=== PATIENT | female | born 1970 | race Caucasian/White ===

== ENCOUNTER → 2020-09-29 | Emergency (ER) | payer SELFPAY ==
[~2020-09-29] VITALS: Ht 157.5 cm; Wt 88.0 kg
[~2020-09-29] MED LIST: DIAZEPAM INJ 5 MG/ML 2 ML IM NR; LIDOCAINE 4% PATCH TP NR; METHYLPREDNISOLONE SOD SUCC 125 MG/2ML VIAL IM ONE
[2020-09-29 17:09] VITALS: BP 142/76
== END | disposition home or self-care (01) ==
LOC: ER 21:18
DX: M25.512 Pain in left shoulder (principal); M75.02 Adhesive capsulitis of left shoulder; X50.0XXA Overexertion from strenuous movement or load, initial encounter; Y99.0 Civilian activity done for income or pay; I10 Essential (primary) hypertension; D68.2 Hereditary deficiency of other clotting factors
CPT/HCPCS: 99283; J2930; J3360

== ENCOUNTER 2021-06-18 11:44 | Emergency (ER) | payer OTHER ==
[~2021-06-18] VITALS: Ht 157.5 cm; Wt 93.0 kg
[2021-06-18] MEDS ORDERED: PROMETHAZINE HCL 25 MG TAB PO STA (12:56)
[2021-06-18] MEDS ORDERED: Morphine 4mg Syringe 4 MG/ML INJ IM ONE ×2 (13:00→14:45)
[2021-06-18 14:04] LABS: CLARITY,URINE CLOUDY (CLEAR); COLOR,URINE YELLOW (YELLOW)
[2021-06-18 14:05] LABS: KETONES,URINE NEGATIVE (NEGATIVE); LEUKOCYTE ESTERASE ,URINE NEGATIVE (NEGATIVE); NITRITE,URINE NEGATIVE (NEGATIVE); PROTEIN,URINE DIPSTICK NEGATIVE (NEGATIVE); URINE UROBILINOGEN 0.2 mg/dL (0.2 - 1)
[2021-06-18 14:09] LABS: BACTERIA,URINE MANY /HPF; EPITHELIAL CELLS,URINE MANY /LPF
[2021-06-18 14:10] LABS: MUCUS,URINE MODERATE (RARE)
[2021-06-18] MEDS ORDERED: MORPHINE SULFAT15 MG PO (15:50)
== END 2021-06-18 16:00 | disposition home or self-care (01) ==
LOC: ER 12:02
DX: R10.32 Left lower quadrant pain (principal); S30.1XXA Contusion of abdominal wall, initial encounter; W55.12XA Struck by horse, initial encounter; Y92.89 Other specified places as the place of occurrence of the external cause; I10 Essential (primary) hypertension; D68.2 Hereditary deficiency of other clotting factors; Z79.01 Long term (current) use of anticoagulants
CPT/HCPCS: 74176; 81001; 99283; J2270

== ENCOUNTER 2021-08-23 12:39 | Emergency (ER) | payer OTHER ==
[~2021-08-23] VITALS: Ht 157.5 cm; Wt 93.0 kg
[~2021-08-23 12:39] MED LIST changes: -DIAZEPAM INJ 5 MG/ML 2 ML IM NR; -LIDOCAINE 4% PATCH TP NR; -METHYLPREDNISOLONE SOD SUCC 125 MG/2ML VIAL IM ONE; +MORPHINE SULFAT15 MG PO
[2021-08-23] MEDS ORDERED: PROMETHAZINE HC25 M1 PO (12:55)
== END 2021-08-23 13:40 | disposition home or self-care (01) ==
LOC: ER 12:50
DX: G43.909 Migraine, unspecified, not intractable, without status migrainosus (principal); I10 Essential (primary) hypertension; D68.51 Activated protein C resistance
CPT/HCPCS: 99283

== ENCOUNTER 2021-11-26 02:12 | Emergency (ER) | payer OTHER ==
[~2021-11-26] VITALS: Ht 157.5 cm; Wt 95.3 kg
[~2021-11-26 02:12] MED LIST changes: +PROMETHAZINE HC25 M1 PO
[2021-11-26] MEDS ORDERED: Morphine 4mg Syringe 4 MG/ML INJ IM STA (02:19)
[2021-11-26] MEDS ORDERED: PROMETHAZINE HCL (IM) 25 MG/ML VIAL IM STA (02:19)
[2021-11-26] MEDS ORDERED: Morphine 2mg Syringe 2 MG/ML SYR ONE (02:40)
[2021-11-26] MEDS ORDERED: PROMETHAZINE 25MG/SOD CHL 0.9% 50 ML IV ONE (02:41)
[2021-11-26 02:45] VITALS: BP 156/84
== END 2021-11-26 02:46 | disposition home or self-care (01) ==
LOC: ER 02:17
DX: G43.909 Migraine, unspecified, not intractable, without status migrainosus (principal); I10 Essential (primary) hypertension; D68.2 Hereditary deficiency of other clotting factors
CPT/HCPCS: 99282; J2270; J2550

== ENCOUNTER 2022-05-09 12:40 | Emergency (ER) | payer OTHER ==
[~2022-05-09] VITALS: Ht 157.5 cm; Wt 95.3 kg
[2022-05-09] MEDS ORDERED: ONDANSETRON HCL INJ 2MG/ML 2ML 2 MG/ML VIAL IV STA (13:08)
[2022-05-09] MEDS ORDERED: Morphine 4mg INJECTION 4 MG/ML INJ IV ONE ×2 (13:15→14:45)
[2022-05-09] MEDS ORDERED: SODIUM CHLORIDE 0.9% 1000ML 1,000 ML IV ONE (13:15)
[2022-05-09 13:22] LABS: BASOPHILS % 0.7 % (0.0-1.0); EOSINOPHILS # (AUTO) 0.1 (0.0-0.4); EOSINOPHILS % 0.9 % (0.0-6.0); HEMATOCRIT 43.9 % (34.2-44.1); HEMOGLOBIN 14.2 g/dL (12.0-16.0); LYMPHOCYTES # (AUTO) 0.8 (1.0-3.2); LYMPHOCYTES % 14.6 % (18.0-39.1); MEAN CORPUSCULAR HEMOGLOBIN 30.5 pg (28-32); MEAN CORPUSCULAR HGB CONC 32.3 g/dL (31-35); MEAN CORPUSCULAR VOLUME 94.2 fL (81-99); MONOCYTES # (AUTO) 0.1 (0.2-0.8); MONOCYTES % 1.9 % (4.4-11.3); NEUTROPHILS # (AUTO) 4.6 (2.1-6.9); NEUTROPHILS % 81.7 % (38.7-80.0); PLATELET COUNT 234 x10e3/uL (140-360); RED BLOOD COUNT 4.66 x10e6/uL (3.6-5.1); RED CELL DISTRIBUTION WIDTH 12.3 % (11.7-14.4)
[2022-05-09] MEDS ORDERED: TAMSULOSIN HCL 0.4 MG CAP PO ONE (13:30)
[2022-05-09] MEDS ORDERED: PROMETHAZINE HCL (IM) 25 MG/ML VIAL IM ONE (13:30)
[2022-05-09 13:44] LABS: ALBUMIN 3.7 g/dL (3.5-5.0); ANION GAP 14.7 mmol/L (8-16); CALCIUM 9.3 mg/dL (8.4-10.2); CREATININE, SERUM 0.88 mg/dL (0.57-1.11); POTASSIUM 3.7 mmol/L (3.5-5.1)
[2022-05-09 14:04] LABS: CLARITY,URINE CLEAR (CLEAR); COLOR,URINE YELLOW (YELLOW); KETONES,URINE NEGATIVE (NEGATIVE); LEUKOCYTE ESTERASE ,URINE NEGATIVE (NEGATIVE); NITRITE,URINE NEGATIVE (NEGATIVE); PROTEIN,URINE DIPSTICK NEGATIVE (NEGATIVE); URINE UROBILINOGEN 0.2 mg/dL (0.2 - 1)
[2022-05-09 14:05] LABS: BACTERIA,URINE FEW /HPF; EPITHELIAL CELLS,URINE MODERATE /LPF; RBC,URINE 0-5 /HPF (0-5); WBC,URINE (MAN) 0-5 /HPF (0-5)
[2022-05-09 15:35] VITALS: BP 150/100
== END 2022-05-09 15:42 | disposition home or self-care (01) ==
LOC: ER 12:42
DX: R10.31 Right lower quadrant pain (principal); Z76.5 Malingerer [conscious simulation]; I10 Essential (primary) hypertension; D68.2 Hereditary deficiency of other clotting factors
CPT/HCPCS: 36415; 74176; 80053; 81001; 85025; 99283; J2270; J2550; J7030

== ENCOUNTER 2022-06-02 06:58 | Emergency (ER) | payer OTHER ==
[~2022-06-02] VITALS: Ht 157.5 cm; Wt 122.5 kg
[2022-06-02] MEDS ORDERED: METHYLPREDNISOLONE SOD SUCC 125 MG/2ML VIAL IV STA (07:17)
[2022-06-02] MEDS ORDERED: Morphine 4mg INJECTION 4 MG/ML INJ IV STA (07:17)
[2022-06-02] MEDS ORDERED: SODIUM CHLORIDE 0.9% 1000ML 1,000 ML IV STA (07:17)
[2022-06-02] MEDS ORDERED: DIPHENHYDRAMINE HCL INJ 50 MG/ML VIAL IV ONE (07:30)
[2022-06-02] MEDS ORDERED: PROMETHAZINE HCL (IM) 25 MG/ML VIAL IM ONE (08:15)
[2022-06-02 08:18] LABS: BASOPHILS % 0.5 % (0.0-1.0); EOSINOPHILS # (AUTO) 0.2 (0.0-0.4); EOSINOPHILS % 3.4 % (0.0-6.0); HEMATOCRIT 41.5 % (34.2-44.1); HEMOGLOBIN 13.5 g/dL (12.0-16.0); LYMPHOCYTES # (AUTO) 1.5 (1.0-3.2); LYMPHOCYTES % 24.4 % (18.0-39.1); MEAN CORPUSCULAR HEMOGLOBIN 31.3 pg (28-32); MEAN CORPUSCULAR HGB CONC 32.5 g/dL (31-35); MEAN CORPUSCULAR VOLUME 96.3 fL (81-99); MONOCYTES # (AUTO) 0.6 (0.2-0.8); MONOCYTES % 9.6 % (4.4-11.3); NEUTROPHILS # (AUTO) 3.8 (2.1-6.9); NEUTROPHILS % 61.9 % (38.7-80.0); PLATELET COUNT 230 x10e3/uL (140-360); RED BLOOD COUNT 4.31 x10e6/uL (3.6-5.1); RED CELL DISTRIBUTION WIDTH 12.4 % (11.7-14.4)
[2022-06-02 08:31] LABS: INR 0.89; PROTHROMBIN TIME 12.9 seconds (11.9-14.5)
[2022-06-02 08:32] LABS: PARTIAL THROMBOPLASTIN TIME 29.8 seconds (23.8-35.5)
[2022-06-02 08:42] LABS: ALBUMIN 3.4 g/dL (3.5-5.0); ALBUMIN/GLOBULIN RATIO 0.9 (0.8-2.0); ANION GAP 10.5 mmol/L (8-16); CALCIUM 9.1 mg/dL (8.4-10.2); CREATININE, SERUM 0.96 mg/dL (0.57-1.11); POTASSIUM 3.5 mmol/L (3.5-5.1)
[2022-06-02] MEDS ORDERED: HYDROMORPHONE 2MG/ML 2 MG/ML ML IM ONE (08:45)
[2022-06-02 08:49] LABS: CREATINE KINASE MB 0.5 ng/mL (0-5.0)
[2022-06-02 09:32] LABS: COLOR,URINE YELLOW (YELLOW)
[2022-06-02 09:33] LABS: CLARITY,URINE SL CLOUDY (CLEAR); KETONES,URINE NEGATIVE (NEGATIVE); LEUKOCYTE ESTERASE ,URINE NEGATIVE (NEGATIVE); NITRITE,URINE NEGATIVE (NEGATIVE); PROTEIN,URINE DIPSTICK NEGATIVE (NEGATIVE); URINE UROBILINOGEN 0.2 mg/dL (0.2 - 1)
[2022-06-02 09:34] LABS: BACTERIA,URINE FEW /HPF; EPITHELIAL CELLS,URINE MANY /LPF; RBC,URINE 0-5 /HPF (0-5)
== END 2022-06-02 10:26 | disposition home or self-care (01) ==
LOC: ER 07:04
DX: R10.31 Right lower quadrant pain (principal); W55.22XA Struck by cow, initial encounter; Y92.89 Other specified places as the place of occurrence of the external cause; I10 Essential (primary) hypertension; D68.51 Activated protein C resistance
CPT/HCPCS: 36415; 74176; 80053; 81001; 82550; 82553; 83690; 83735; 84484; 85025; 85610; 85730; 99284; J1170; J1200; J2270; J2550; J2930; J7030

== ENCOUNTER 2024-01-16 12:54 | Emergency (ER) | payer OTHER ==
[~2024-01-16 12:54] MED LIST changes: +CEFDINIR300 MG PO
[2024-01-16 13:26] VITALS: PULSE 82; RESP 18; TEMP 98.1; O2SAT 97
== END 2024-01-16 13:20 | disposition left against medical advice (07) ==
LOC: FSED 13:04
DX: R07.9 Chest pain, unspecified (principal); D68.51 Activated protein C resistance; Z86.711 Personal history of pulmonary embolism; I12.9 Hypertensive chronic kidney disease with stage 1 through stage 4 chronic kidney disease, or unspecified chronic kidney disease; N18.9 Chronic kidney disease, unspecified

== ENCOUNTER 2024-01-16 13:34 | Emergency (ER) | payer OTHER ==
[~2024-01-16] VITALS: Ht 157.5 cm; Wt 93.0 kg
[2024-01-16] MEDS ORDERED: SODIUM CHLORIDE FLUSH 10 ML SYR IV PRN (14:15)
[2024-01-16] MEDS: Morphine 4mg INJECTION 4 MG/ML INJ IV ONE (15:24)
[2024-01-16 15:53] LABS: BASOPHILS % 0.3 % (0.0-1.0); EOSINOPHILS % 0.1 % (0.0-6.0); HEMATOCRIT 39.4 % (34.2-44.1); LYMPHOCYTES # (AUTO) 2.2 (1.0-3.2); LYMPHOCYTES % 15.5 % (18.0-39.1); MEAN CORPUSCULAR HEMOGLOBIN 32.2 pg (28-32); MEAN CORPUSCULAR VOLUME 97.5 fL (81-99); MONOCYTES # (AUTO) 1.4 (0.2-0.8); MONOCYTES % 10.3 % (4.4-11.3); NEUTROPHILS # (AUTO) 10.2 (2.1-6.9); NEUTROPHILS % 73.2 % (38.7-80.0); PLATELET COUNT 237 x10e3/uL (140-360); RED BLOOD COUNT 4.04 x10e6/uL (3.6-5.1); RED CELL DISTRIBUTION WIDTH 13.2 % (11.7-14.4); WHITE BLOOD COUNT 13.96 x10e3/uL (4.8-10.8)
[2024-01-16 16:03] LABS: INR 1.08; PROTHROMBIN TIME 14.8 seconds (11.9-14.5)
[2024-01-16 16:13] LABS: ALANINE AMINOTRANSFERASE 21 IU/L (0-55); ALBUMIN 3.9 g/dL (3.5-5.0); ALKALINE PHOSPHATASE 122 IU/L (40-150); ANION GAP 12.9 mmol/L (8-16); BILIRUBIN,TOTAL 0.2 mg/dL (0.2-1.2); BLOOD UREA NITROGEN 13 mg/dL (7-26); BUN/CREATININE RATIO 14 (6-25); CALCIUM 9.7 mg/dL (8.4-10.2); CARBON DIOXIDE 23 mmol/L (22-29); CHLORIDE 107 mmol/L (98-107); EST GLOMERULAR FILTRATION RATE 76 ML/MIN (>=60); GLUCOSE 105 mg/dL (74-118); POTASSIUM 3.9 mmol/L (3.5-5.1); SODIUM 139 mmol/L (136-145); TOTAL PROTEIN 7.7 g/dL (6.5-8.1)
[2024-01-16 16:19] LABS: TROPONIN I < 0.001 ng/mL (0-0.300)
[2024-01-16] MEDS ORDERED: METHYLPREDNISOLONE SOD SUCC 125 MG/2ML VIAL ONE (19:17)
[2024-01-16] MEDS ORDERED: DIPHENHYDRAMINE HCL INJ 50 MG/ML VIAL ONE (19:17)
[2024-01-16] MEDS ORDERED: IOPAMIDOL 370 MG/ML 100 ML INFUS..BTL INJ ONE (19:36)
[2024-01-16] MEDS: METHYLPREDNISOLONE SOD SUCC 125 MG/2ML VIAL IV STA (19:45)
[2024-01-16] MEDS: PROMETHAZINE 12.5MG/ NACL 0.9% 12.5 MG/50 ML BAG IV ONE (19:45)
[2024-01-16] MEDS: DIPHENHYDRAMINE HCL INJ 50 MG/ML VIAL IV STA ×2 (19:46→21:13)
[2024-01-16] MEDS: ASPIRIN 325 MG TAB PO STA ×2 (19:46→19:47)
[2024-01-16] MEDS: SODIUM CHLORIDE 0.9% 1000ML 1,000 ML IV ONE (19:46)
[2024-01-16] MEDS: DIPHENHYDRAMINE HCL INJ 50 MG/ML VIAL IV ONE ×2 (19:47→21:00)
[2024-01-16] MEDS: METHYLPREDNISOLONE SOD SUCC 125 MG/2ML VIAL IV ONE (19:47)
[2024-01-16] MEDS: FAMOTIDINE 20 MG/2 ML VIAL IV STA (21:00)
[2024-01-16] MEDS ORDERED: FAMOTIDINE 20 MG/2 ML VIAL IV ONE (21:03)
[2024-01-16 21:40] VITALS: PULSE 77; RESP 17; TEMP 98
[2024-01-16 22:14] VITALS: BP 166/96; PULSE 77; RESP 17; TEMP 98; O2SAT 99
== END 2024-01-16 22:16 | disposition home or self-care (01) ==
LOC: ER 13:39
DX: R07.9 Chest pain, unspecified (principal); Z86.711 Personal history of pulmonary embolism; Z79.01 Long term (current) use of anticoagulants; Z76.5 Malingerer [conscious simulation]; I10 Essential (primary) hypertension; Z86.73 Personal history of transient ischemic attack (TIA), and cerebral infarction without residual deficits; Z87.442 Personal history of urinary calculi
CPT/HCPCS: 36415; 36569; 71045; 71260; 80053; 83880; 84484; 85025; 85610; 85730; 93005; 99284; J1200; J2270; J2550; J2919; J7030; Q9967

== ENCOUNTER 2024-02-08 09:37 | Observation (INO) | payer OTHER ==
[~2024-02-08] VITALS: Ht 157.5 cm; Wt 95.3 kg
[2024-02-08 09:50] VITALS: TEMP 97.9
[2024-02-08 11:23] LABS: BASOPHILS % 0.4 % (0.0-1.0); EOSINOPHILS # (AUTO) 0.1 (0.0-0.4); HEMATOCRIT 41.7 % (34.2-44.1); LYMPHOCYTES # (AUTO) 1.6 (1.0-3.2); LYMPHOCYTES % 34.3 % (18.0-39.1); MEAN CORPUSCULAR HEMOGLOBIN 32.8 pg (28-32); MEAN CORPUSCULAR HGB CONC 33.6 g/dL (31-35); MEAN CORPUSCULAR VOLUME 97.7 fL (81-99); MONOCYTES # (AUTO) 0.5 (0.2-0.8); NEUTROPHILS # (AUTO) 2.5 (2.1-6.9); NEUTROPHILS % 52.1 % (38.7-80.0); PLATELET COUNT 207 x10e3/uL (140-360); RED BLOOD COUNT 4.27 x10e6/uL (3.6-5.1); RED CELL DISTRIBUTION WIDTH 12.9 % (11.7-14.4); WHITE BLOOD COUNT 4.72 x10e3/uL (4.8-10.8)
[2024-02-08] MEDS: PROMETHAZINE HCL 25 MG TAB PO ONE (11:27)
[2024-02-08] MEDS: HYDROMORPHONE 1MG/1ML INJ IM STA (11:27)
[2024-02-08 11:33] LABS: INR 0.81; PROTHROMBIN TIME 11.8 seconds (11.9-14.5)
[2024-02-08 11:34] LABS: PARTIAL THROMBOPLASTIN TIME 26.7 seconds (23.8-35.5)
[2024-02-08 11:43] LABS: ALANINE AMINOTRANSFERASE 13 IU/L (0-55); ALBUMIN 3.6 g/dL (3.5-5.0); ALKALINE PHOSPHATASE 106 IU/L (40-150); ANION GAP 12.5 mmol/L (8-16); BILIRUBIN,TOTAL 0.3 mg/dL (0.2-1.2); BLOOD UREA NITROGEN 9 mg/dL (7-26); BUN/CREATININE RATIO 11 (6-25); CALCIUM 9.2 mg/dL (8.4-10.2); CARBON DIOXIDE 24 mmol/L (22-29); CHLORIDE 108 mmol/L (98-107); CREATININE, SERUM 0.83 mg/dL (0.57-1.11); EST GLOMERULAR FILTRATION RATE 84 ML/MIN (>=60); GLUCOSE 88 mg/dL (74-118); MAGNESIUM 1.9 MG/DL (1.3-2.1); POTASSIUM 3.5 mmol/L (3.5-5.1); SODIUM 141 mmol/L (136-145); TOTAL PROTEIN 7.1 g/dL (6.5-8.1)
[2024-02-08] MEDS: CLONIDINE HCL 0.1 MG TAB PO ONE (11:44)
[2024-02-08 11:53] LABS: TROPONIN I < 0.001 ng/mL (0-0.300)
[2024-02-08] MEDS ORDERED: HYDROMORPHONE 1MG/1ML INJ IM STA (12:38)
[2024-02-08] MEDS ORDERED: CLONIDINE HCL 0.1 MG TAB PO PRN (13:15)
[2024-02-08] MEDS ORDERED: ACETAMINOPHEN 325 MG TAB PO PRN (13:15)
[2024-02-08] MEDS ORDERED: ONDANSETRON HCL INJ 2MG/ML 2ML 2 MG/ML VIAL IV PRN (13:30)
[2024-02-08] MEDS: WARFARIN SOD 5 MG TAB PO ONE (13:33)
[2024-02-08 14:19] LABS: EOSINOPHILS % (MANUAL) 2 % (0-7); LYMPHOCYTES % (MANUAL) 37 % (19-48); MONOCYTES % (MANUAL) 6 % (3.4-9.0); NEUTROPHILS % (MANUAL) 51 % (40-74); PLATELET ESTIMATE ADEQUATE; PLATELET MORPHOLOGY COMMENT NORMAL; RBC MORPHOLOGY COMMENT NORMAL; REACTIVE LYMPHOCYTES 4
[2024-02-08] MEDS: ENOXAPARIN SODIUM INJ 100 MG/ML SYR SC ONE (14:28)
[2024-02-08 14:30] VITALS: PULSE 71; RESP 17
[2024-02-08] MEDS: HYDROMORPHONE 1MG/1ML INJ IV STA (14:57)
[2024-02-08 15:08] VITALS: BP 149/117; PULSE 70; RESP 20; TEMP 97.5; O2SAT 99
[2024-02-08 15:15] VITALS: BP 149/117; PULSE 70; RESP 20; TEMP 97.5; O2SAT 99
[2024-02-08] MEDS: HYDROCHLOROTHIAZIDE 25 MG TAB PO SCH (17:13)
[2024-02-08] MEDS: WARFARIN SOD 5 MG TAB PO SCH (17:14)
[2024-02-08] MEDS: CARVEDILOL 12.5 MG TAB PO SCH (17:14)
[2024-02-08] MEDS: Morphine 4mg INJECTION 4 MG/ML INJ IV PRN (18:43)
[2024-02-08] MEDS ORDERED: DIPHENHYDRAMINE HCL INJ 50 MG/ML VIAL IV ONE (19:45)
[2024-02-08] MEDS ORDERED: HYDROCORTISONE SOD SUCCINATE 100 MG VIAL IV ONE (19:45)
[2024-02-08 20:00] VITALS: BP 158/115; PULSE 64; RESP 16; TEMP 98.6; O2SAT 99
[2024-02-08] MEDS: HYDROCORTISONE SOD SUCCINATE 100 MG VIAL IV ONE (22:15)
[2024-02-08] MEDS: PROMETHAZINE HCL (IM) 25 MG/ML VIAL IM PRN (22:22)
[2024-02-09] VITALS: BP 155/96; PULSE 72; RESP 18; TEMP 98.6; O2SAT 99
[2024-02-09 01:12] LABS: TROPONIN I < 0.001 ng/mL (0-0.300)
[2024-02-09 01:27] LABS: CREATINE KINASE 70 IU/L (29-168)
[2024-02-09] MEDS: DIPHENHYDRAMINE HCL INJ 50 MG/ML VIAL IV ONE (02:16)
[2024-02-09] MEDS: HYDROCORTISONE SOD SUCCINATE 100 MG VIAL IV ONE (02:17)
[2024-02-09] MEDS ORDERED: IOPAMIDOL 370 MG/ML 100 ML INFUS..BTL INJ ONE (03:20)
[2024-02-09 04:57] VITALS: BP 131/96; PULSE 69; RESP 18; TEMP 98.6; O2SAT 96
[2024-02-09 07:03] LABS: BASOPHILS % 0.2 % (0.0-1.0); HEMATOCRIT 38.5 % (34.2-44.1); HEMOGLOBIN 12.9 g/dL (12.0-16.0); LYMPHOCYTES # (AUTO) 0.6 (1.0-3.2); LYMPHOCYTES % 9.1 % (18.0-39.1); MEAN CORPUSCULAR HEMOGLOBIN 32.7 pg (28-32); MEAN CORPUSCULAR HGB CONC 33.5 g/dL (31-35); MEAN CORPUSCULAR VOLUME 97.7 fL (81-99); MONOCYTES # (AUTO) 0.1 (0.2-0.8); MONOCYTES % 1.5 % (4.4-11.3); NEUTROPHILS # (AUTO) 5.5 (2.1-6.9); NEUTROPHILS % 88.9 % (38.7-80.0); PLATELET COUNT 223 x10e3/uL (140-360); RED BLOOD COUNT 3.94 x10e6/uL (3.6-5.1); RED CELL DISTRIBUTION WIDTH 12.6 % (11.7-14.4); WHITE BLOOD COUNT 6.17 x10e3/uL (4.8-10.8)
[2024-02-09 07:15] LABS: INR 0.9; PROTHROMBIN TIME 12.8 seconds (11.9-14.5)
[2024-02-09 07:22] LABS: ALBUMIN 3.3 g/dL (3.5-5.0); ALBUMIN/GLOBULIN RATIO 0.9 (0.8-2.0); ANION GAP 12.2 mmol/L (8-16); BILIRUBIN,TOTAL 0.2 mg/dL (0.2-1.2); CALCIUM 9.7 mg/dL (8.4-10.2); CHOL/HDL RATIO 2.9 (3.0-3.6); CREATININE, SERUM 0.93 mg/dL (0.57-1.11); POTASSIUM 4.2 mmol/L (3.5-5.1); TOTAL PROTEIN 7.1 g/dL (6.5-8.1)
[2024-02-09 08:07] VITALS: BP 135/92; PULSE 82; RESP 18; TEMP 98.7; O2SAT 95
[2024-02-09 08:16] LABS: CREATINE KINASE 59 IU/L (29-168)
[2024-02-09 09:14] LABS: TROPONIN I < 0.001 ng/mL (0-0.300)
[2024-02-09] MEDS: ENOXAPARIN SODIUM INJ 100 MG/ML SYR SC SCH (09:21)
[2024-02-09 09:25] VITALS: BP 135/92; PULSE 89; RESP 18; TEMP 98.7; O2SAT 95
[2024-02-09] MEDS ORDERED: ELIQUIS5 MG PO (12:10)
[2024-02-09] MEDS ORDERED: COREG12.5 MG PO (12:10)
[2024-02-09] MEDS ORDERED: ESIDRIX25 MG PO (12:10)
[2024-02-09 12:12] VITALS: BP_SYST 149; PULSE 68; RESP 14; TEMP 97.6; O2SAT 97
[2024-02-09] MEDS ORDERED: WARFARIN SOD 5 MG TAB PO SCH (17:00)
[2024-02-09 17:20] VITALS: BP 156/97; PULSE 79
== END 2024-02-09 17:32 | disposition home or self-care (01) ==
LOC: ER 09:45 → ERHOLD 13:32 → MED/SURG2 15:19
PROVIDERS: ADMIT Internal Medicine; ATTEND Internal Medicine
DX: R07.9 Chest pain, unspecified (principal); D68.51 Activated protein C resistance; I10 Essential (primary) hypertension; Z86.73 Personal history of transient ischemic attack (TIA), and cerebral infarction without residual deficits; U07.1 COVID-19; E66.01 Morbid (severe) obesity due to excess calories; Z86.711 Personal history of pulmonary embolism; Z86.718 Personal history of other venous thrombosis and embolism; I07.1 Rheumatic tricuspid insufficiency; G47.33 Obstructive sleep apnea (adult) (pediatric); Z88.6 Allergy status to analgesic agent; Z91.041 Radiographic dye allergy status; Z91.048 Other nonmedicinal substance allergy status; Z88.8 Allergy status to other drugs, medicaments and biological substances; Z79.01 Long term (current) use of anticoagulants; Z79.02 Long term (current) use of antithrombotics/antiplatelets; Z79.899 Other long term (current) drug therapy; Z68.38 Body mass index [BMI] 38.0-38.9, adult; Z82.49 Family history of ischemic heart disease and other diseases of the circulatory system
CPT/HCPCS: 36415; 36569; 71045; 71260; 80053; 80061; 82550; 83735; 84484; 85025; 85610; 85730; 93005; 93306; 93971; 99284; G0378; J1170; J1200; J1650; J1720; J2270; J2550; Q9967; U0002

== ENCOUNTER 2024-02-29 07:47 | Emergency (ER) | payer OTHER ==
[~2024-02-29] VITALS: Ht 157.5 cm; Wt 97.5 kg
[~2024-02-29 07:47] MED LIST changes: +COREG12.5 MG PO; +ELIQUIS5 MG PO; +ESIDRIX25 MG PO
[2024-02-29 07:53] VITALS: TEMP 97
[2024-02-29 08:28] LABS: BILIRUBIN,URINE SMALL (NEGATIVE); CLARITY,URINE TURBID (CLEAR); COLOR,URINE RED (YELLOW); GLUCOSE, URINE NEGATIVE (NEGATIVE); KETONES,URINE NEGATIVE (NEGATIVE); LEUKOCYTE ESTERASE ,URINE NEGATIVE (NEGATIVE); NITRITE,URINE NEGATIVE (NEGATIVE); PH,URINE 5.5 (5 - 7); PROTEIN,URINE DIPSTICK 1+ (NEGATIVE); URINE UROBILINOGEN 1 mg/dL (0.2 - 1)
[2024-02-29 08:50] VITALS: BP 174/124
[2024-02-29] MEDS: CLONIDINE HCL 0.1 MG TAB PO ONE (08:50)
[2024-02-29] MEDS: PROMETHAZINE HCL (IM) 25 MG/ML VIAL IM ONE (08:50)
[2024-02-29 08:51] LABS: BACTERIA,URINE RARE /HPF; EPITHELIAL CELLS,URINE FEW /LPF; RBC,URINE >50 /HPF (0-5); WBC,URINE (MAN) 0-5 /HPF (0-5)
[2024-02-29] MEDS: Morphine 4mg INJECTION 4 MG/ML INJ IM ONE (08:51)
[2024-02-29 09:43] LABS: BASOPHILS % 0.7 % (0.0-1.0); EOSINOPHILS # (AUTO) 0.1 (0.0-0.4); EOSINOPHILS % 2.4 % (0.0-6.0); HEMATOCRIT 41.6 % (34.2-44.1); HEMOGLOBIN 13.7 g/dL (12.0-16.0); LYMPHOCYTES # (AUTO) 1.5 (1.0-3.2); LYMPHOCYTES % 28.4 % (18.0-39.1); MEAN CORPUSCULAR HEMOGLOBIN 32.5 pg (28-32); MEAN CORPUSCULAR HGB CONC 32.9 g/dL (31-35); MEAN CORPUSCULAR VOLUME 98.8 fL (81-99); MONOCYTES # (AUTO) 0.6 (0.2-0.8); MONOCYTES % 11.6 % (4.4-11.3); NEUTROPHILS % 56.7 % (38.7-80.0); PLATELET COUNT 180 x10e3/uL (140-360); RED BLOOD COUNT 4.21 x10e6/uL (3.6-5.1); RED CELL DISTRIBUTION WIDTH 12.8 % (11.7-14.4); WHITE BLOOD COUNT 5.35 x10e3/uL (4.8-10.8)
[2024-02-29] MEDS: SODIUM CHLORIDE 0.9% 1000ML 1,000 ML IV ONE (09:43)
[2024-02-29 10:00] LABS: INR 0.82; PROTHROMBIN TIME 11.7 seconds (11.9-14.5)
[2024-02-29 10:01] LABS: PARTIAL THROMBOPLASTIN TIME 26.6 seconds (23.8-35.5)
[2024-02-29 10:13] LABS: ALANINE AMINOTRANSFERASE 19 IU/L (0-55); ALBUMIN 3.6 g/dL (3.5-5.0); ALKALINE PHOSPHATASE 98 IU/L (40-150); ANION GAP 12.9 mmol/L (8-16); BILIRUBIN,TOTAL 0.5 mg/dL (0.2-1.2); BLOOD UREA NITROGEN 14 mg/dL (7-26); BUN/CREATININE RATIO 18 (6-25); CALCIUM 9.3 mg/dL (8.4-10.2); CARBON DIOXIDE 23 mmol/L (22-29); CHLORIDE 108 mmol/L (98-107); EST GLOMERULAR FILTRATION RATE 88 ML/MIN (>=60); GLUCOSE 87 mg/dL (74-118); LIPASE 17 U/L (8-78); POTASSIUM 3.9 mmol/L (3.5-5.1); SODIUM 140 mmol/L (136-145); TOTAL PROTEIN 7.1 g/dL (6.5-8.1)
[2024-02-29 12:20] VITALS: PULSE 82; RESP 15; O2SAT 100
== END 2024-02-29 12:24 | disposition left against medical advice (07) ==
LOC: ER 07:54
DX: R31.9 Hematuria, unspecified (principal); R10.31 Right lower quadrant pain
CPT/HCPCS: 36415; 74176; 80053; 81001; 83690; 84702; 85025; 85610; 85730; 99284; J2270; J2550

== ENCOUNTER 2024-03-05 16:24 | Emergency (ER) | payer OTHER ==
[~2024-03-05] VITALS: Ht 157.5 cm; Wt 96.7 kg
[2024-03-05] MEDS ORDERED: HYDROCHLOROTHIA25 MG PO (16:49)
[2024-03-05] MEDS ORDERED: COREG12.5 MG PO (16:51)
[2024-03-05] MEDS ORDERED: DIPHENHYDRAMINE HCL INJ 50 MG/ML VIAL IV ONE (17:30)
[2024-03-05] MEDS ORDERED: Morphine 4mg INJECTION 4 MG/ML INJ IV ONE (17:30)
[2024-03-05] MEDS: DIPHENHYDRAMINE HCL INJ 50 MG/ML VIAL IM ONE (17:51)
[2024-03-05] MEDS: Morphine 4mg INJECTION 4 MG/ML INJ IM ONE (17:52)
[2024-03-05 18:52] VITALS: PULSE 85; RESP 16; TEMP 98.7
[2024-03-05] MEDS ORDERED: CYCLOBENZAPRINE5 MG PO (18:52)
[2024-03-05 21:17] VITALS: BP 159/100; PULSE 88; RESP 24; TEMP 98.3; O2SAT 97
== END 2024-03-05 22:03 | disposition home or self-care (01) ==
LOC: FSED 16:39
DX: G43.909 Migraine, unspecified, not intractable, without status migrainosus (principal); I10 Essential (primary) hypertension; D68.2 Hereditary deficiency of other clotting factors; Z86.718 Personal history of other venous thrombosis and embolism; Z86.73 Personal history of transient ischemic attack (TIA), and cerebral infarction without residual deficits; Z87.442 Personal history of urinary calculi
CPT/HCPCS: 70450; 96372; 99283; J1200; J2270

== ENCOUNTER 2024-03-08 19:45 | Emergency (ER) | payer OTHER ==
[~2024-03-08] VITALS: Ht 157.5 cm; Wt 96.6 kg
[~2024-03-08 19:45] MED LIST changes: +CYCLOBENZAPRINE5 MG PO; +HYDROCHLOROTHIA25 MG PO
[2024-03-08 20:18] VITALS: PULSE 89; RESP 18; TEMP 98.1
[2024-03-08] MEDS: ACETAMINOPHEN 325 MG TAB PO ONE (21:00)
[2024-03-08] MEDS: PROMETHAZINE HCL (IM) 25 MG/ML VIAL IM ONE (21:00)
[2024-03-08] MEDS: DIPHENHYDRAMINE HCL 25 MG CAP PO ONE (21:00)
[2024-03-08 21:08] VITALS: BP 157/96; PULSE 89; RESP 18; TEMP 98.1; O2SAT 97
== END 2024-03-08 21:08 | disposition home or self-care (01) ==
LOC: FSED 19:47
DX: G43.909 Migraine, unspecified, not intractable, without status migrainosus (principal); I10 Essential (primary) hypertension; D68.2 Hereditary deficiency of other clotting factors; Z86.73 Personal history of transient ischemic attack (TIA), and cerebral infarction without residual deficits; Z86.718 Personal history of other venous thrombosis and embolism; Z87.442 Personal history of urinary calculi
CPT/HCPCS: 70450; 96372; 99283; J2550

== ENCOUNTER 2024-03-13 20:28 | Emergency (ER) | payer OTHER ==
[~2024-03-13] VITALS: Ht 157.5 cm; Wt 96.6 kg
[2024-03-13 20:47] VITALS: PULSE 99; RESP 16; TEMP 98.1
[2024-03-13] MEDS: ACETAMINOPHEN 325 MG TAB PO ONE (21:30)
[2024-03-13 23:12] VITALS: PULSE 95; RESP 16; O2SAT 100
== END 2024-03-13 23:10 | disposition home or self-care (01) ==
LOC: ER 20:47
DX: S00.83XA Contusion of other part of head, initial encounter (principal); R51.9 Headache, unspecified; Y04.8XXA Assault by other bodily force, initial encounter; Y92.89 Other specified places as the place of occurrence of the external cause; I10 Essential (primary) hypertension; Z86.73 Personal history of transient ischemic attack (TIA), and cerebral infarction without residual deficits; Z86.718 Personal history of other venous thrombosis and embolism; Z87.442 Personal history of urinary calculi
CPT/HCPCS: 70450; 99283

== ENCOUNTER 2024-04-14 07:13 | Emergency (ER) | payer OTHER ==
[~2024-04-14] VITALS: Ht 157.5 cm; Wt 96.6 kg
[2024-04-14 07:17] VITALS: TEMP 98
[2024-04-14] MEDS ORDERED: SODIUM CHLORIDE FLUSH 10 ML SYR IV PRN (07:30)
[2024-04-14 08:07] LABS: BASOPHILS % 0.5 % (0.0-1.0); EOSINOPHILS # (AUTO) 0.2 (0.0-0.4); EOSINOPHILS % 2.6 % (0.0-6.0); HEMATOCRIT 39.2 % (34.2-44.1); LYMPHOCYTES # (AUTO) 1.8 (1.0-3.2); LYMPHOCYTES % 22.8 % (18.0-39.1); MEAN CORPUSCULAR HGB CONC 33.2 g/dL (31-35); MEAN CORPUSCULAR VOLUME 96.6 fL (81-99); MONOCYTES # (AUTO) 0.9 (0.2-0.8); MONOCYTES % 11.7 % (4.4-11.3); NEUTROPHILS # (AUTO) 4.9 (2.1-6.9); PLATELET COUNT 225 x10e3/uL (140-360); RED BLOOD COUNT 4.06 x10e6/uL (3.6-5.1); RED CELL DISTRIBUTION WIDTH 11.8 % (11.7-14.4); WHITE BLOOD COUNT 7.94 x10e3/uL (4.8-10.8)
[2024-04-14] MEDS: SODIUM CHLORIDE 0.9% 1000ML 1,000 ML IV ONE (08:12)
[2024-04-14] MEDS: PROMETHAZINE 12.5MG/ NACL 0.9% 12.5 MG/50 ML BAG IV ONE (08:13)
[2024-04-14] MEDS: Morphine 4mg INJECTION 4 MG/ML INJ IV ONE (08:16)
[2024-04-14] MEDS: HYDROCORTISONE SOD SUCCINATE 100 MG VIAL IV SCH (08:18)
[2024-04-14 08:19] LABS: INR 1.05; PARTIAL THROMBOPLASTIN TIME 32.8 seconds (23.8-35.5); PROTHROMBIN TIME 14.2 seconds (11.9-14.5)
[2024-04-14] MEDS: DIPHENHYDRAMINE HCL INJ 50 MG/ML VIAL IV ONE (08:19)
[2024-04-14 08:29] LABS: ALANINE AMINOTRANSFERASE 18 IU/L (0-55); ALBUMIN 3.5 g/dL (3.5-5.0); ALBUMIN/GLOBULIN RATIO 1.1 (0.8-2.0); ALKALINE PHOSPHATASE 118 IU/L (40-150); ANION GAP 11.3 mmol/L (8-16); BILIRUBIN,TOTAL 0.5 mg/dL (0.2-1.2); BLOOD UREA NITROGEN 15 mg/dL (7-26); BUN/CREATININE RATIO 17 (6-25); CALCIUM 9.8 mg/dL (8.4-10.2); CARBON DIOXIDE 27 mmol/L (22-29); CHLORIDE 100 mmol/L (98-107); CREATININE, SERUM 0.87 mg/dL (0.57-1.11); EST GLOMERULAR FILTRATION RATE 80 ML/MIN (>=60); GLUCOSE 100 mg/dL (74-118); POTASSIUM 3.3 mmol/L (3.5-5.1); SODIUM 135 mmol/L (136-145); TOTAL PROTEIN 6.7 g/dL (6.5-8.1)
[2024-04-14 08:34] LABS: TROPONIN I 0.002 ng/mL (0-0.300)
[2024-04-14 11:33] VITALS: PULSE 78; RESP 16; O2SAT 98
[2024-04-14] MEDS: DONNATAL/LIDOCAINE/MAALOX 30 ML SUSP PO ONE (11:55)
== END 2024-04-14 12:21 | disposition home or self-care (01) ==
LOC: ER 07:19
DX: R06.02 Shortness of breath (principal); R07.89 Other chest pain; R11.2 Nausea with vomiting, unspecified; I10 Essential (primary) hypertension; D68.2 Hereditary deficiency of other clotting factors; Z86.73 Personal history of transient ischemic attack (TIA), and cerebral infarction without residual deficits; Z87.442 Personal history of urinary calculi
CPT/HCPCS: 36415; 71045; 80053; 83880; 84484; 84702; 85025; 85610; 85730; 93005; 94760; 99284; J1200; J1720; J2270; J2550; J7030

== ENCOUNTER 2024-04-28 04:02 | Emergency (ER) | payer OTHER ==
[~2024-04-28] VITALS: Ht 157.5 cm; Wt 96.6 kg
[2024-04-28 04:06] VITALS: PULSE 97; RESP 20; TEMP 97.9; O2SAT 97
[2024-04-28] MEDS ORDERED: NITROGLYCERIN 2% OINT 1 GM PKT TOP STA (04:11)
== END 2024-04-28 04:15 | disposition left against medical advice (07) ==
LOC: ER 04:15
DX: R07.9 Chest pain, unspecified (principal); I10 Essential (primary) hypertension; D68.2 Hereditary deficiency of other clotting factors; Z86.73 Personal history of transient ischemic attack (TIA), and cerebral infarction without residual deficits; Z86.718 Personal history of other venous thrombosis and embolism; Z87.442 Personal history of urinary calculi
CPT/HCPCS: 36415; 99282

== ENCOUNTER 2024-05-02 13:47 | Emergency (ER) | payer OTHER ==
[~2024-05-02] VITALS: Ht 157.5 cm; Wt 96.6 kg
[2024-05-02] MEDS ORDERED: SODIUM CHLORIDE 0.9% 1000ML 1,000 ML IV SCH (14:15)
[2024-05-02 14:18] VITALS: PULSE 96; RESP 18; TEMP 98.1; O2SAT 95
== END 2024-05-02 14:30 | disposition left against medical advice (07) ==
LOC: FSED 13:51
DX: R10.31 Right lower quadrant pain (principal); S30.1XXA Contusion of abdominal wall, initial encounter; R31.9 Hematuria, unspecified; W55.12XA Struck by horse, initial encounter; Y92.89 Other specified places as the place of occurrence of the external cause
CPT/HCPCS: 99283

== ENCOUNTER 2024-05-14 23:39 | Emergency (ER) | payer OTHER ==
[~2024-05-14] VITALS: Ht 157.5 cm; Wt 99.8 kg
[2024-05-14 23:53] VITALS: PULSE 89; RESP 18; TEMP 98.7; O2SAT 96
== END 2024-05-15 01:05 | disposition home or self-care (01) ==
LOC: FSED 23:45
DX: S00.83XA Contusion of other part of head, initial encounter (principal); W22.8XXA Striking against or struck by other objects, initial encounter; Y99.0 Civilian activity done for income or pay; I10 Essential (primary) hypertension; D68.2 Hereditary deficiency of other clotting factors; Z86.73 Personal history of transient ischemic attack (TIA), and cerebral infarction without residual deficits; Z87.442 Personal history of urinary calculi
CPT/HCPCS: 70450; 99283

== ENCOUNTER 2024-05-21 17:11 | Emergency (ER) | payer OTHER ==
[~2024-05-21] VITALS: Ht 157.5 cm; Wt 99.8 kg
[2024-05-21 18:12] VITALS: PULSE 87; RESP 18; TEMP 97.3; O2SAT 100
[2024-05-21] MEDS: PROMETHAZINE HCL 25 MG TAB PO ONE (18:23)
[2024-05-21] MEDS: ACETAMIN/BUTALBITAL/CAFFEINE TAB PO ONE (18:23)
== END 2024-05-21 18:56 | disposition left against medical advice (07) ==
LOC: ER 17:59
DX: R51.9 Headache, unspecified (principal)
CPT/HCPCS: 99282

== ENCOUNTER 2024-08-29 16:47 | Emergency (ER) | payer OTHER ==
[~2024-08-29] VITALS: Ht 157.5 cm; Wt 95.3 kg
[2024-08-29] MEDS ORDERED: ONDANSETRON ODT4 MG PO (17:51)
[2024-08-29 18:02] VITALS: PULSE 93; RESP 16; TEMP 97.4; O2SAT 97
== END 2024-08-29 18:02 | disposition home or self-care (01) ==
LOC: FSED 16:55
DX: S06.0X0A Concussion without loss of consciousness, initial encounter (principal); W50.0XXA Accidental hit or strike by another person, initial encounter; Y92.89 Other specified places as the place of occurrence of the external cause; I10 Essential (primary) hypertension; D68.51 Activated protein C resistance; Z86.73 Personal history of transient ischemic attack (TIA), and cerebral infarction without residual deficits; Z87.442 Personal history of urinary calculi
CPT/HCPCS: 70450; 99283

== ENCOUNTER 2024-10-24 07:37 | Emergency (ER) | payer OTHER ==
[~2024-10-24] VITALS: Ht 157.5 cm; Wt 95.3 kg
[~2024-10-24 07:37] MED LIST changes: +ONDANSETRON ODT4 MG PO
[2024-10-24 07:49] VITALS: PULSE 85; RESP 17; TEMP 98.3; O2SAT 99
[2024-10-24] MEDS ORDERED: ACETAMINOPHEN 325 MG TAB PO ONE (08:00)
[2024-10-24] MEDS ORDERED: PROMETHAZINE HCL (IM) 25 MG/ML VIAL IM ONE (08:30)
== END 2024-10-24 08:15 | disposition left against medical advice (07) ==
LOC: ER 07:44
DX: R30.0 Dysuria (principal); R10.9 Unspecified abdominal pain; R11.2 Nausea with vomiting, unspecified; D68.51 Activated protein C resistance; I10 Essential (primary) hypertension; Z86.73 Personal history of transient ischemic attack (TIA), and cerebral infarction without residual deficits; Z87.442 Personal history of urinary calculi